=== PATIENT | female | born 1965 | race Caucasian/White ===

== ENCOUNTER → 2021-09-11 | Outpatient (CLI) | payer BC | LOC: KOH-I 09-07 14:00 | DX: E04.1 Nontoxic single thyroid nodule (principal) | CPT/HCPCS: 76536 ==

== ENCOUNTER → 2021-09-18 | Outpatient (CLI) | payer BC | LOC: US 12:52 | DX: N63.20 Unspecified lump in the left breast, unspecified quadrant (principal); Z80.3 Family history of malignant neoplasm of breast | CPT/HCPCS: 76641-LT ==

== ENCOUNTER → 2021-09-28 | Outpatient (CLI) | payer BC | LOC: US 09:08 | DX: E04.1 Nontoxic single thyroid nodule (principal) ==